=== PATIENT | female | born 1995 | race Caucasian/White ===

== ENCOUNTER 2017-11-11 13:23 | Emergency (ER) | payer OTHER ==
[2017-11-11] MEDS ORDERED: Acetaminophen 325 MG Tab PO ONE ×2 (13:45→21:33)
[2017-11-11 14:39] LABS: CHLORIDE,CL 99 mmol/L (98-107); SODIUM,NA 136 mmol/L (136-145)
[2017-11-11] MEDS ORDERED: Potassium Chloride 20 MEQ Tab.ER PO ONE ×2 (14:49→21:09)
[2017-11-11] MEDS ORDERED: LORazepam 1 MG Tab PO ONE ×2 (15:11→21:33)
[2017-11-11] MEDS ORDERED: cefTRIAXone 1 GM Vial IM ONE (15:12)
--- NOTE | 2017-11-11 16:11 | EDM.PDOC ---
ED HPI GENERAL MEDICAL PROBLEM - General Chief Complaint: General Stated Complaint: L sided swelling, "abnormal labs" Time Seen by Provider: 11/11/17 14:00 Source of Information: Reports: Patient, Family History Limitations: Reports: Uncooperative (vague history, not giving consistent answers to questions/history review. ) - History of Present Illness INITIAL COMMENTS - FREE TEXT/NARRATIVE: Patient is brought to the ER by her mother for complaint of not feeling well. Has not been seen by her mother for approximately one month but showed up at home several days ago complaining of not feeling well. Long history of drug use /abuse/dependency. Was in inpatient drug rehab last year. At first she said for 6 months, later she said for 8 months. Reports she was discharged from rehab 6 months ago. Patient has no job. 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 Mom says patient has been staying with friends/moving around to different homes. Patient claims she spends most of her time living with her grandfather. Mother disputes this. During initial ROS, patient admitted to using THC, denied other drug use. Admitted to drinking ETOH "on weekends''. Very difficult to get timeframe of current illness, such as when symptoms started. Patient vague, said "I don't know". Eventually she said that she was having symptoms for 4 days. No eye contact during initial history made by patient. She did complain of left sided mid back pain, non-radiating. Some nausea. No emesis/bowel changes. Uncertain if she had high fevers. Denied taking any medications at home such as Tylenol or Ibuprofen to nurse. Also complaint of some dysuria. Menstrual cycle started today. Said PMH + for GERD, Herpes Was seen at [facility] in [place] yesterday. She was given Rocephin IM and Rx for Septra. Mom says that patient "disappeared" after the appointment and did not pick up attendant the medication. When asked why she didn't pick up attendant the medicine, the patient told nurse it was because she was "tired". Negative Hep C screen yesterday. UC pending. Clinic at that time was worried about possible pyelonephritis - Related Data Allergies Allergy/AdvReac Type Severity Reaction Status Date / Time ciprofloxacin [From Cipro] Allergy Hives Verified 11/11/17 13:25 morphine Allergy Anaphylactic Verified 11/11/17 14:02 Shock Home Meds: Home Meds valACYclovir HCl [Valtrex] 500 mg PO DAILY PRN 01/10/14 [History] Acetaminophen [Tylenol] 650 mg PO Q4HR PRN 11/11/17 [History] Famotidine [Pepcid AC] 10 mg PO DAILY PRN 11/11/17 [History] Ibuprofen 400 mg PO Q6HR PRN 11/11/17 [History] Sulfamethoxazole/Trimethoprim [Septra DS] 1 tab PO BID 11/11/17 [History] Past Medical History Gastrointestinal History: Reports: Chronic Constipation, GERD Psychiatric History: Reports: Addiction Endocrine/Metabolic History: Reports: Obesity/BMI 30+ - Infectious Disease History Infectious Disease History: Reports: Herpes Social & Family History - Tobacco Use Smoking Status *Q: Current Every Day Smoker Tobacco Use Within Last Twelve Months: Cigarettes Years of Tobacco use: 4 Packs/Tins Daily: 0.5 Used Tobacco, but Quit: No Smoking Cessation Information Provided To Patient: Patient Refused Second Hand Smoke Exposure: Yes - Alcohol Use Alcohol Use History: Yes Days Per Week of Alcohol Use: 1 (Denies abuse however initial intoxication at age 9-10 by her history) Alcohol Use in Last Twelve Months: Yes Alcohol Use Comment: Vague with history/frequency - Recreational Drug Use Recreational Drug Use: Yes Recreational Drug Type: Reports: Cocaine, Marijuana/Hashish, Methamphetamine Recreational Drug Use Frequency: Daily - Living Situation & Occupation Living situation: Reports: with Family Occupation: Student ED ROS GENERAL - Review of Systems Review Of Systems: See Below Constitutional: Reports: Fever, Malaise, Weight Loss (Mom reports patient has lost weight over the last month). Denies: Diaphoresis HEENT: Reports: No Symptoms Respiratory: Reports: No Symptoms. Denies: Shortness of Breath, Wheezing, Pleuritic Chest Pain, Cough Cardiovascular: Reports: No Symptoms. Denies: Chest Pain GI/Abdominal: Reports: Nausea. Denies: Abdominal Pain, Black Stool, Bloody Stool, Difficulty Swallowing, Distension, Vomiting : Reports: Dysuria, Flank Pain, Frequency, Hematuria, Urgency Musculoskeletal: Reports: No Symptoms Skin: Reports: Other (scattered small errosions/scabs over body, patient says due to Herpes) Neurological: Reports: No Symptoms Psychiatric: Reports: No Symptoms Hematologic/Lymphatic: Reports: No Symptoms Immunologic: Reports: No Symptoms ED EXAM, GENERAL - Physical Exam Exam: See Below Exam Limited By: No Limitations General Appearance: Alert, Obese, Other (restless, very unkept in appearance, holes in clothes) Eye Exam: Bilateral Eye: EOMI, PERRL Ears: Normal External Exam, Normal Canal, Hearing Grossly Normal, Normal TMs Nose: Normal Inspection. No: Nasal Swelling, Nasal Drainage Throat/Mouth: Normal Lips, Normal Oropharynx, Normal Voice, No Airway Compromise , Other (no significant dental disease noted) Head: Atraumatic, Normocephalic Neck: Normal Inspection, Supple, Non-Tender, Full Range of Motion. No: Lymphadenopathy (L), Lymphadenopathy (R) Respiratory/Chest: No Respiratory Distress, Lungs Clear, Normal Breath Sounds, No Accessory Muscle Use, Chest Non-Tender Cardiovascular: Normal Peripheral Pulses, Tachycardia Peripheral Pulses: 2+: Radial (L), Radial (R), Dorsalis Pedis (L), Dorsalis Pedis (R) GI/Abdominal: Normal Bowel Sounds, Soft, No Distention, Tender (mild tenderness with palpation of central abdomen). No: Distended, Guarding, Rigid, Rebound (Female) Exam: Deferred Rectal (Female) Exam: Deferred Back Exam: CVA Tenderness (L) (mild). No: CVA Tenderness (R), Muscle Spasm, Paraspinal Tenderness, Vertebral Tenderness Extremities: Normal Inspection, Normal Range of Motion, Non-Tender, No Pedal Edema, Normal Capillary Refill Neurological: Alert, Oriented, Normal Reflexes, No Motor/Sensory Deficits Psychiatric: Anxious Skin Exam: Warm, Dry, Rash (Scattered small round errosions/scabs noted on face/ neck/trunk/limbs bilaterally. No active drainage/pustules noted. ) Lymphatic: No Adenopathy Course - Vital Signs Last Recorded V/S: Last Vital Signs Temp 37.9 C 11/11/17 15:46 Pulse 97 11/11/17 15:46 Resp 16 11/11/17 15:46 BP 96/52 L 11/11/17 15:46 Pulse Ox 100 11/11/17 15:46 - Orders/Labs/Meds Orders: Active Orders 24 hr Category Date Time Status Abdomen Pelvis wo Cont [CT] Stat Exams 11/11/17 15:05 Taken Labs: Laboratory Tests 11/11/17 11/11/17 11/11/17 Range/Units 14:01 14:15 14:15 WBC 13.8 H (4.0-10.2) K/uL RBC 4.22 (3.77-5.09) M/uL Hgb 13.0 (11.7-15.5) g/dL Hct 37.8 (34.0-46.0) % MCV 89.6 (84.0-98.0) fL MCH 30.8 (28.2-33.3) pg MCHC 34.4 (31.7-36.0) g/dL RDW 13.2 (11.2-14.1) % Plt Count 172 D (150-350) K/uL Neut % (Auto) 81.7 H (45.0-80.0) % Lymph % (Auto) 8.2 L (10.0-50.0) % [place] % (Auto) 9.9 (2.0-14.0) % Eos % (Auto) 0.1 (0.0-5.0) % Baso % (Auto) 0.1 (0.0-2.0) % Neut # (Auto) 11.25 H (1.40-7.00) K/uL Lymph # (Auto) 1.13 (0.50-3.50) K/uL [facility] # (Auto) 1.36 H (0.00-1.00) K/uL Eos # (Auto) 0.01 (0.00-0.50) K/uL Baso # (Auto) 0.02 (0.00-0.20) K/uL Sodium 136 (136-145) mmol/L Potassium 2.9 L* (3.5-5.1) mmol/L Chloride 99 (98-107) mmol/L Carbon Dioxide 28.0 (21.0-32.0) mmol/L BUN 6 L (7-18) mg/dL Creatinine 0.66 (0.51-1.17) mg/dL Est Cr Clr Drug Dosing 5.09 mL/min Estimated GFR (MDRD) > 60 mL/min Glucose 92 (74-106) mg/dL Lactic Acid (0.4-2.0) mmol/L Calcium 8.3 L (8.5-10.1) mg/dL Total Bilirubin 0.5 (0.2-1.0) mg/dL AST 12 L (15-37) U/L ALT 11 L (12-78) U/L Alkaline Phosphatase 106 (46-116) IU/L Total Protein 7.3 (6.4-8.2) g/dL Albumin 2.7 L (3.4-5.0) g/dL Specimen Type Urine Color Urine Appearance Urine pH (5.0-9.0) Ur Specific [place] (1.005-1.030) Urine Protein (NEGATIVE) mg/dL Urine Glucose (UA) (NEGATIVE) mg/dL Urine Ketones (NEGATIVE) mg/dL Urine Occult Blood (NEGATIVE) Urine Nitrite (NEGATIVE) Urine Bilirubin (NEGATIVE) Urine Urobilinogen (0.2-1.0) E.U./dL Ur Leukocyte Esterase (NEGATIVE) Urine RBC /HPF Urine WBC /HPF Ur Epithelial Cells /LPF Urine Bacteria (NONE TO FEW) /HPF Urine HCG, Qual Urine Opiates Screen (NEGATIVE) Ur Barbiturates Screen (NEGATIVE) Ur Tricyclics Screen (NEGATIVE) Ur Phencyclidine Scrn (NEGATIVE) Ur Amphetamine Screen (NEGATIVE) U Methamphetamines Scrn (NEGATIVE) U Benzodiazepines Scrn (NEGATIVE) U Cocaine Metab Screen (NEGATIVE) U Marijuana (THC) Screen (NEGATIVE) Ethyl Alcohol 0.000 (0.000-0.080) g/dL 11/11/17 11/11/17 11/11/17 Range/Units 14:15 14:30 14:30 WBC (4.0-10.2) K/uL RBC (3.77-5.09) M/uL Hgb (11.7-15.5) g/dL Hct (34.0-46.0) % MCV (84.0-98.0) fL MCH (28.2-33.3) pg MCHC (31.7-36.0) g/dL RDW (11.2-14.1) % Plt Count (150-350) K/uL Neut % (Auto) (45.0-80.0) % Lymph % (Auto) (10.0-50.0) % [place] % (Auto) (2.0-14.0) % Eos % (Auto) (0.0-5.0) % Baso % (Auto) (0.0-2.0) % Neut # (Auto) (1.40-7.00) K/uL Lymph # (Auto) (0.50-3.50) K/uL [facility] # (Auto) (0.00-1.00) K/uL Eos # (Auto) (0.00-0.50) K/uL Baso # (Auto) (0.00-0.20) K/uL Sodium (136-145) mmol/L Potassium (3.5-5.1) mmol/L Chloride (98-107) mmol/L Carbon Dioxide (21.0-32.0) mmol/L BUN (7-18) mg/dL Creatinine (0.51-1.17) mg/dL Est Cr Clr Drug Dosing mL/min Estimated GFR (MDRD) mL/min Glucose (74-106) mg/dL Lactic Acid 1.4 (0.4-2.0) mmol/L Calcium (8.5-10.1) mg/dL Total Bilirubin (0.2-1.0) mg/dL AST (15-37) U/L ALT (12-78) U/L Alkaline Phosphatase (46-116) IU/L Total Protein (6.4-8.2) g/dL Albumin (3.4-5.0) g/dL Specimen Type Urinblad Urine Color Dark yellow Urine Appearance Slightly cloudy Urine pH 5.5 (5.0-9.0) Ur Specific [place] 1.020 (1.005-1.030) Urine Protein 100 H (NEGATIVE) mg/dL Urine Glucose (UA) Negative (NEGATIVE) mg/dL Urine Ketones Trace H (NEGATIVE) mg/dL Urine Occult Blood Large H (NEGATIVE) Urine Nitrite Negative (NEGATIVE) Urine Bilirubin Small H (NEGATIVE) Urine Urobilinogen 1.0 (0.2-1.0) E.U./dL Ur Leukocyte Esterase Trace H (NEGATIVE) Urine RBC 50-75 H /HPF Urine WBC 10-20 H /HPF Ur Epithelial Cells Few /LPF Urine Bacteria Few (NONE TO FEW) /HPF Urine HCG, Qual Negative Urine Opiates Screen (NEGATIVE) Ur Barbiturates Screen (NEGATIVE) Ur Tricyclics Screen (NEGATIVE) Ur Phencyclidine Scrn (NEGATIVE) Ur Amphetamine Screen (NEGATIVE) U Methamphetamines Scrn (NEGATIVE) U Benzodiazepines Scrn (NEGATIVE) U Cocaine Metab Screen (NEGATIVE) U Marijuana (THC) Screen (NEGATIVE) Ethyl Alcohol (0.000-0.080) g/dL 11/11/17 11/11/17 Range/Units 14:30 20:45 WBC (4.0-10.2) K/uL RBC (3.77-5.09) M/uL Hgb (11.7-15.5) g/dL Hct (34.0-46.0) % MCV (84.0-98.0) fL MCH (28.2-33.3) pg MCHC (31.7-36.0) g/dL RDW (11.2-14.1) % Plt Count (150-350) K/uL Neut % (Auto) (45.0-80.0) % Lymph % (Auto) (10.0-50.0) % [place] % (Auto) (2.0-14.0) % Eos % (Auto) (0.0-5.0) % Baso % (Auto) (0.0-2.0) % Neut # (Auto) (1.40-7.00) K/uL Lymph # (Auto) (0.50-3.50) K/uL [facility] # (Auto) (0.00-1.00) K/uL Eos # (Auto) (0.00-0.50) K/uL Baso # (Auto) (0.00-0.20) K/uL Sodium (136-145) mmol/L Potassium 3.1 L (3.5-5.1) mmol/L Chloride (98-107) mmol/L Carbon Dioxide (21.0-32.0) mmol/L BUN (7-18) mg/dL Creatinine (0.51-1.17) mg/dL Est Cr Clr Drug Dosing mL/min Estimated GFR (MDRD) mL/min Glucose (74-106) mg/dL Lactic Acid (0.4-2.0) mmol/L Calcium (8.5-10.1) mg/dL Total Bilirubin (0.2-1.0) mg/dL AST (15-37) U/L ALT (12-78) U/L Alkaline Phosphatase (46-116) IU/L Total Protein (6.4-8.2) g/dL Albumin (3.4-5.0) g/dL Specimen Type Urine Color Urine Appearance Urine pH (5.0-9.0) Ur Specific [place] (1.005-1.030) Urine Protein (NEGATIVE) mg/dL Urine Glucose (UA) (NEGATIVE) mg/dL Urine Ketones (NEGATIVE) mg/dL Urine Occult Blood (NEGATIVE) Urine Nitrite (NEGATIVE) Urine Bilirubin (NEGATIVE) Urine Urobilinogen (0.2-1.0) E.U./dL Ur Leukocyte Esterase (NEGATIVE) Urine RBC /HPF Urine WBC /HPF Ur Epithelial Cells /LPF Urine Bacteria (NONE TO FEW) /HPF Urine HCG, Qual Urine Opiates Screen Negative (NEGATIVE) Ur Barbiturates Screen Negative (NEGATIVE) Ur Tricyclics Screen Negative (NEGATIVE) Ur Phencyclidine Scrn Negative (NEGATIVE) Ur Amphetamine Screen Positive H (NEGATIVE) U Methamphetamines Scrn Positive H (NEGATIVE) U Benzodiazepines Scrn Negative (NEGATIVE) U Cocaine Metab Screen Negative (NEGATIVE) U Marijuana (THC) Screen Positive H (NEGATIVE) Ethyl Alcohol (0.000-0.080) g/dL Meds: Medications Discontinued Medications Generic Name Dose Route Start Last Admin Trade Name Freq PRN Reason Stop Dose Admin Acetaminophen 650 mg 11/11/17 13:45 11/11/17 13:48 Tylenol PO 11/11/17 13:46 650 mg NOW ONE Administration Ceftriaxone Sodium 1 gm 11/11/17 15:12 11/11/17 16:03 Rocephin IM 11/11/17 15:13 1 gm ONETIME ONE Administration Lidocaine HCl Confirm 11/11/17 15:30 11/11/17 16:04 Xylocaine-Mpf 1% Administered 11/11/17 15:31 5 ml Dose Administration 5 ml .ROUTE .STK-MED ONE Lorazepam 1 mg 11/11/17 15:11 11/11/17 15:44 Ativan PO 11/11/17 15:12 1 mg ONETIME ONE Administration Potassium Chloride 40 meq 11/11/17 14:49 11/11/17 15:11 Klor-Con M20 PO 11/11/17 14:50 40 meq ONETIME ONE Administration Potassium Chloride 20 meq 11/11/17 17:00 11/11/17 16:45 Klor-Con 10 PO 11/11/17 17:01 20 meq ONETIME ONE Administration Potassium Chloride 20 meq 11/11/17 19:00 11/11/17 19:06 Klor-Con 10 PO 11/11/17 19:01 20 meq ONETIME ONE Administration Potassium Chloride 40 meq 11/11/17 21:09 Klor-Con M20 PO 11/11/17 21:10 ONETIME ONE - Radiology Interpretation Free Text/Narrative:: No acute findings on abdominal/pelvic CT other than some changes consistent with constipation per Radiology. CT Results Date: 11/11/17 CT Results Time: 17:00 - Re-Assessments/Exams Free Text/Narrative Re-Assessment/Exam: 11/11/17 16:19 + Meth and THC. Normal lactic acid. WBC elevated but improved compared to level noted by [facility] yesterday. K low at 2.9 CT of abd/pelvis ordered to rule out kidney stone. Patient admitted to use when confronted. Has no interest in going to treatment, saying she had "enough" treatment last year during her 6-8 month stint as inpatient and knows what to do to stay clean. Discussed ongoing hematuria/pyuria and lack of compliance in picking up prescribed antibiotics yesterday. Discussed low K noted today. Patient made aware that both low potassium and UTIs/Pyelonepritis can be lethal if left untreated. Patient promised that she would be compliant with treatment course. Refused IV. Refused to see local administrator social welfare saying that she "needed to get out of this town and get her own place/job" and felt as though that would help her achieve sobriety. Was OK with getting IM Rocephin despite her saying that she hated needles and did not want an IV. She was observed to be able to drink water easily. PO hydration encouraged. Plan formulated for PO Potassium supplementation over 6 hours with recheck of Potassium level at that time. Patient wants to go home. Ativan given. Single lab draw planned at this time to recheck potassium at 2100 due to patient's extreme reaction (screaming) with blood draws. She wants as few draws as possible. 18:40 CT unremarkable for stone/perforation/acute changes. Patient resting comfortably. Requesting to eat supper. Patient will be discharged if potassium level is in improved range this evening. Again, it was impressed upon her that it will be of utmost importance to pick up attendant her antibiotics and take them as prescribed. She is to follow up in two days with [facility] to have potassium rechecked and see if infection is improving appropriately. Extensive precautions discussed with patient prior to planned discharge. Patient at this point in time says she has no plans on any Meth use/other illicit drug use in the near future. She is to follow up otherwise as needed. Free Text/Narrative Re-Assessment/Exam: 11/11/17 21:20 Patient has been resting comfortably, watching TV. Demeanor significantly improved. PO fluids/food without problem. Overall feels better than she did yesterday morning (has now had 2 doses IM Rocephin) Pulse rate/BP improved. K level now 3.1 40meq PO Potassium ordered and given to patient. Discussed with patient that although potassium level has improved, it is still low. Patient given option to stay overnight on observation with additional PO K and redraw in AM which she refused, saying that she would rather go home to spend the night at her mother's home. Patient refused IV during stay, IV K not an option. Patient promises to come back tomorrow morning by lunch to get potassium level rechecked. Plans on getting her antibiotics in the morning and then coming to our facility for lab work. Extensive precautions again reviewed prior to discharge, including the potential risks of low potassium as well as continued Meth/drug use. Departure - Departure Time of Disposition: 22:00 Disposition: Home, Self-Care 01 Condition: Good Clinical Impression: Substance abuse, Methamphetamine addiction, Pyelonephritis, Hypokalemia - Discharge Information Instructions: Pyelonephritis, Adult, [id number], Hypokalemia Referrals: Shawna Mclaughlin PA-C [Primary Care Provider] - Forms: ED Department Discharge Additional Instructions: Go home, rest, drink plenty of fluids. RETURN to see us TOMORROW by NOON to have your potassium level rechecked! It IMPORTANT to [facility] CODER your ANTIBIOTICS that were prescribed for you yesterday by [facility]. Start them immediately tomorrow morning. DO NOT use METH or other illegal drugs. Be aware that using such drugs could make it more possible to worsen your infection and chances of kidney damage. Call [facility] tomorrow and make an appointment for THURSDAY, two days from now, to be rechecked and also get your potassium rechecked. It is is low again , further checks will be needed as well as additional oral potassium pills supplements. Follow up otherwise as needed. - My Orders Last 24 Hours: My Active Orders 11/11/17 15:05 Abdomen Pelvis wo Cont [CT] Stat - Assessment/Plan Last 24 Hours: My Active Orders 11/11/17 15:05 Abdomen Pelvis wo Cont [CT] Stat
[2017-11-11] MEDS ORDERED: Potassium Chloride 10 MEQ Tab.ER PO ONE ×2 (17:00→19:00)
== END 2017-11-11 22:07 | disposition home or self-care (01) ==
LOC: LL.ED 13:23
DX: N12 Tubulo-interstitial nephritis, not specified as acute or chronic (principal); E87.6 Hypokalemia; F19.20 Other psychoactive substance dependence, uncomplicated; E66.9 Obesity, unspecified; F17.210 Nicotine dependence, cigarettes, uncomplicated; K21.9 Gastro-esophageal reflux disease without esophagitis; Z79.899 Other long term (current) drug therapy; Z88.5 Allergy status to narcotic agent; Z88.1 Allergy status to other antibiotic agents
CPT/HCPCS: 36415; 74176; 80053; 80305; 81001; 81025; 83605; 84132; 85025; 96372; 99284; A9270-GY; G0480; J0696

== ENCOUNTER 2018-09-07 05:18 | Emergency (ER) | payer OTHER ==
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
[2018-09-07] MEDS: methylPREDNISolone Acetate 80 MG/ML SDV IM ONE (06:56)
== END 2018-09-07 06:45 | disposition home or self-care (01) ==
LOC: LL.ED 05:18
DX: J06.9 Acute upper respiratory infection, unspecified (principal); F17.210 Nicotine dependence, cigarettes, uncomplicated; F41.8 Other specified anxiety disorders; F19.90 Other psychoactive substance use, unspecified, uncomplicated; Z71.6 Tobacco abuse counseling; Z79.899 Other long term (current) drug therapy
CPT/HCPCS: 87081; 87430; 87804; 96372; 99283; J1040

== ENCOUNTER 2019-05-08 22:05 | Emergency (ER) | payer OTHER ==
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
[2019-05-08 23:29] LABS: BARBITURATE SCREEN,URINE NEGATIVE (NEGATIVE); BENZODIAZEPINES SCREEN,URINE NEGATIVE (NEGATIVE); TCA SCREEN,URINE NEGATIVE (NEGATIVE); THC SCREEN,URINE 50 NG/ML POSITIVE (NEGATIVE)
[2019-05-08 23:36] LABS: CHLORIDE,CL 101 mmol/L (98-107); SODIUM,NA 138 mmol/L (136-145)
[2019-05-08] MEDS ORDERED: Magnesium Citrate Solution 296 ML Bottle PO ONE (23:50)
[2019-05-08] MEDS ORDERED: Ketorolac 10 MG Tab PO ONE (23:51)
== END 2019-05-09 00:50 | disposition home or self-care (01) ==
LOC: LL.ED 22:05
DX: K59.00 Constipation, unspecified (principal); N76.0 Acute vaginitis; R10.10 Upper abdominal pain, unspecified; F15.10 Other stimulant abuse, uncomplicated; F17.210 Nicotine dependence, cigarettes, uncomplicated; Z88.5 Allergy status to narcotic agent; Z88.1 Allergy status to other antibiotic agents
CPT/HCPCS: 36415; 74019; 80053; 80305-QW; 81001; 81025; 85025; 87086; 99284-25; A9270-GY

== ENCOUNTER 2020-10-17 18:56 | Emergency (ER) | payer OTHER, MEDICAID ==
[2020-10-17] MEDS ORDERED: Sodium Chloride 0.9% 10 ML Syringe FLUSH PRN (19:06)
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
== END 2020-10-17 19:10 | disposition left against medical advice (07) ==
LOC: LL.ED 18:56
DX: F41.8 Other specified anxiety disorders (principal); F15.20 Other stimulant dependence, uncomplicated; Z88.1 Allergy status to other antibiotic agents; Z88.5 Allergy status to narcotic agent; Z72.0 Tobacco use
CPT/HCPCS: 99283

== ENCOUNTER 2021-06-20 23:12 | Emergency (ER) | payer MEDICAID, OTHER ==
[2021-06-20] MEDS ORDERED: Ondansetron 4 MG/2 ML SDV IVPUSH ONE (23:27)
[2021-06-20] MEDS ORDERED: Ketorolac 30 MG/ML SDV IVPUSH ONE (23:39)
[2021-06-20] MEDS ORDERED: HYDROmorphone 1 MG/ML Syringe IVPUSH ONE (23:40)
[2021-06-20] MEDS ORDERED: diphenhydrAMINE 50 MG/ML SDV IVPUSH ONE (23:41)
[2021-06-21] MEDS ORDERED: Sodium Chloride 0.9% 1,000 ML IV ONE (00:04)
[2021-06-21] MEDS ORDERED: Iopamidol 612 MG/ML 100 ML Bottle IVPUSH STA (00:06)
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
[2021-06-21 00:38] LABS: BARBITURATE SCREEN,URINE NEGATIVE (NEGATIVE); BENZODIAZEPINES SCREEN,URINE NEGATIVE (NEGATIVE); BUPRENORPHINE SCREEN,URINE NEGATIVE (NEGATIVE); EDDP,URINE SCREEN NEGATIVE (NEGATIVE); TCA SCREEN,URINE NEGATIVE (NEGATIVE); THC SCREEN,URINE 50 NG/ML POSITIVE (NEGATIVE)
[2021-06-21 00:39] LABS: ANION GAP 17.3 meq/L (7-15); CHLORIDE,CL 105 mmol/L (98-107); SODIUM,NA 141 mmol/L (136-145)
[2021-06-21] MEDS ORDERED: Sodium Chloride 0.9% 10 ML Syringe FLUSH PRN (03:27)
[2021-06-21] MEDS ORDERED: Sodium Chloride 0.9% 1,000 ML IV SCH (03:30)
[2021-06-21] MEDS ORDERED: Potassium Chloride 20 MEQ Tab.ER PO ONE ×2 (08:57→11:00)
[2021-06-21] MEDS ORDERED: HYDROmorphone 0.5 MG/0.5 ML Syringe IV ONE (09:52)
== END 2021-06-21 10:30 | disposition home or self-care (01) ==
LOC: LL.ED 23:12
DX: R10.11 Right upper quadrant pain (principal); R10.13 Epigastric pain; R11.2 Nausea with vomiting, unspecified; E66.9 Obesity, unspecified; Z68.30 Body mass index [BMI] 30.0-30.9, adult; Z88.1 Allergy status to other antibiotic agents; Z88.5 Allergy status to narcotic agent; Z72.0 Tobacco use
CPT/HCPCS: 36415; 74177; 80053; 80305-QW; 80307; 81001; 81025; 82150; 83605; 83690; 85025; 96374; 96375; 96376; 99284; 99284-25; A9270-GY; J1170; J1200; J1885; J2405; J7030; Q9967

== ENCOUNTER 2022-05-12 22:24 | Emergency (ER) | payer MEDICAID | END 2022-05-12 23:15 | disposition home or self-care (01) | LOC: LL.ED 22:24 | DX: S61.012A Laceration without foreign body of left thumb without damage to nail, initial encounter (principal); Z88.1 Allergy status to other antibiotic agents; Z88.6 Allergy status to analgesic agent; W23.1XXA Caught, crushed, jammed, or pinched between stationary objects, initial encounter | CPT/HCPCS: 12001; 73140-FA; 99283 ==